=== PATIENT | female | born 1995 | race Caucasian/White ===

== ENCOUNTER 2016-12-31 01:19 | Emergency (ER) | payer OTHER ==
[~2016-12-31] VITALS: Ht 167.6 cm; Wt 152.9 kg
[2016-12-31] MEDS ORDERED: ED- TRAMADOL 50 MG (ULTRAM) 6 TABLETS/BTL PO ONE (01:45)
[2016-12-31 02:39] LABS: BILIRUBIN,URINE Negative (Negative); COLOR,URINE Yellow; GLUCOSE, URINE (UA) Negative (Negative); LEUKOCYTE ESTERASE ,URINE Negative (Negative); PH,URINE 5.5 (5.0 - 8.0); UROBILINOGEN,URINE 0.2 mg/dL (0.2-1.0)
[2016-12-31 02:55] LABS: URINE CENTRIFUGED VOLUME 12 mL
[2016-12-31 02:56] LABS: CLARITY,URINE Slightly Cloudy
[2016-12-31 02:57] LABS: CALCIUM OXALATE CRYSTALS,UR 2+ /HPF
[2016-12-31 03:05] VITALS: BP 99/78
== END 2016-12-31 03:02 | disposition home or self-care (01) ==
LOC: ED 01:21
DX: R10.2 Pelvic and perineal pain (principal); N89.8 Other specified noninflammatory disorders of vagina
CPT/HCPCS: 81003; 81015; 87070; 87088; 87210; 87491; 99283